=== PATIENT | male | born 1980 | race Caucasian/White ===

== ENCOUNTER 2023-10-31 16:46 | Emergency (ER) | payer BC ==
[~2023-10-31] VITALS: Ht 193 cm; Wt 92.1 kg
[2023-10-31 17:05] VITALS: BP_SYST 122; PULSE 86; RESP 16; TEMP 98.2; O2SAT 96
[2023-10-31] MEDS: IBUPROFEN 600 MG TABLET PO ONE (17:43)
[2023-10-31] MEDS ORDERED: LIDO1ADH22 TP (19:35)
[2023-10-31] MEDS ORDERED: IBUP-1971 PO (19:35)
[2023-10-31] MEDS: LIDOCAINE PATCH 5% 1 EA TP ONE (19:39)
[2023-10-31 19:43] VITALS: BP_SYST 106; PULSE 73; RESP 18; TEMP 97.6; O2SAT 96
== END 2023-10-31 19:42 | disposition home or self-care (01) ==
LOC: SED 16:46
DX: S09.8XXA Other specified injuries of head, initial encounter (principal); M54.9 Dorsalgia, unspecified; W16.42XA Fall into unspecified water causing other injury, initial encounter; Y93.12 Activity, springboard and platform diving; Y92.89 Other specified places as the place of occurrence of the external cause; Y99.8 Other external cause status
CPT/HCPCS: 70450-TC; 72125-TC; 72128; 99284